=== PATIENT | male | born 1950 | race Caucasian/White ===

== ENCOUNTER → 2021-02-18 | Outpatient (CLI) | payer MEDICARE, MEDICAID ==
[~2021-02-18] MED LIST: ASPIR 8181 MG PO; BACTRIM DS TAB1 EACH PO; COREG6.25 MG PO; DIOVAN160 MG PO; KEFLEX500 MG PO; LEVOTHYROXINE0.05 MG PO; VITAMIN D1000 UNI1 PO; ZOCOR40 MG PO
--- NOTE | 2021-02-18 15:47 | 2DMMODE ---
[place] [address] 2 D/M-MODE ECHOCARDIOGRAM Name: ARIEDUARDO Rolando Room: [facility]#: [id number] Admission: 02/18/21 Attend Phys: Lis Stone Discharge: Date of : 52 Date of Service: 02/18/21 1547 Report #: [id number] THIS REPORT FOR: cc: Lis Grace Samantha RNP Blick, David R. MD [facility] ~ APPROVED REPORT Study performed: 02/18/2021 13:42:55 EXAM: Comprehensive 2D, Doppler, and color-flow Echocardiogram Patient Location: Out-Patient BSA: 1.76 HR: 68 bpm BP: 134/82 mmHg Other Information Study Quality: Fair Indications Cardiomyopathy 2D Dimensions IVSd: 11.11 (7-11mm) LVOT Diam: 20.32 (18-24mm) LVDd: 37.27 mm PWd: 10.16 (7-11mm) Ascending Ao: 25.17 (22-36mm) LVDs: 26.50 (25-40mm) Aortic Root: 23.98 mm Volumes Left Atrial Volume (Systole) LA ESV Index: 16.30 mL/m2 Aortic Valve AoV Peak Benjie.: 1.44 m/s AO Peak Gr.: 8.25 mmHg LVOT Max P.36 mmHg AO Mean Gr.: 5.27 mmHg LVOT Mean P.54 mmHg LVOT Max V: 1.16 m/s AO V2 VTI: 30.86 cm LVOT Mean V: 0.73 m/s JONN (VTI): 3.01 cm2 LVOT V1 VTI: 28.66 cm Mitral Valve E/A Ratio: 0.93 [place] [address] 2 D/M-MODE ECHOCARDIOGRAM Name: EDUARDO CHAPMAN Room: [facility]#: [id number] Admission: 02/18/21 Attend Phys: Lis Stone Discharge: Date of : 52 Date of Service: 02/18/21 1547 Report #: [id number] MV Decel. Time: 215.48 ms MV E Max Benjie.: 0.74 m/s MV PHT: 62.49 ms MVA (PHT): 3.52 cm2 TDI E/Lateral E': 5.69 E/Medial E': 8.22 Medial E' Benjie.: 0.09 m/s Lateral E' Benjie.: 0.13 m/s Pulmonary Valve PV Peak Benjie.: 1.91 m/s PV Peak Gr.: 14.54 mmHg Left Ventricle The left ventricle is normal size. There is normal LV segmental wall motion. There is normal left ventricular wall thickness. Left ventricular systolic function is normal. The left ventricular ejection fraction is within the normal range. LVEF is 55-60%. Grade I - abnormal relaxation pattern. Right Ventricle The right ventricle is normal size. The right ventricular systolic function is normal. Atria The left atrium size is normal. The right atrium size is normal. Aortic Valve The aortic valve is normal in structure. No aortic regurgitation is present. There is no aortic valvular stenosis. Mitral Valve The mitral valve is normal in structure. Trace mitral regurgitation. No evidence of mitral valve stenosis. Tricuspid Valve The tricuspid valve is normal in structure. There is trace tricuspid valve regurgitation noted. Pulmonic Valve Pulmonic valve is not well visualized. There is no pulmonic valvular regurgitation. Great Vessels The aortic root is normal in size. [place] [address] 2 D/M-MODE ECHOCARDIOGRAM Name: EDUARDO CHAPMAN Room: [facility]#: [id number] Admission: 02/18/21 Attend Phys: Lis Stone Discharge: Date of : 52 Date of Service: 02/18/21 1547 Report #: [id number] visualized. Pericardium There is no pericardial effusion. <Conclusion> Left ventricular systolic function is normal. The left ventricular ejection fraction is within the normal range. <ELECTRONICALLY SIGNED> By: Roby Berger MD, [facility] 02/18/21 1547 1547 1547 Roby Berger MD, [facility] /INF
== END ==
LOC: M.CRD 13:50
PROVIDERS: ATTEND Nurse Practitioner Family
DX: I51.7 Cardiomegaly (principal)